=== PATIENT | male | born 1950 | race Caucasian/White ===

== ENCOUNTER 2021-11-28 12:49 | Outpatient (CLI) | payer MEDICARE, BC, SELFPAY ==
--- NOTE | 2021-11-28 13:00 | CRLHL7_ITS ---
For Patients: As a result of the Century Cures Act, medical imaging exams and procedure reports are released immediately into your electronic medical record. You may view this report before your referring provider. If you have questions, please contact your health care provider. Indication: Bronchiolitis obliterans organizing pneumonia Technique: Noncontrast CT chest Please note that all CT scans at this facility use dose modulation, iterative reconstruction, and/or weight-based dosing when appropriate to reduce radiation dose to as low as reasonably achievable. Comparison: 07/04/2021 Findings: Similar nodular density within the right mid lung measuring 1 cm, 3/45. No significant interval change and scarring with bronchiectasis within both lower lobes, lingula and right middle lobe. Similar ill-defined reticular densities within the superior segment of the left lower lobe as well as the left upper lobe and right upper lobe. No pneumothorax or pleural effusion. Cardiomegaly. Calcified gallstone in the gallbladder measuring 2.7 cm. Adrenal glands normal. Regional air trapping left upper lobe is unchanged. No fracture. Impression: No significant change since the prior study. Please note that all CT scans at this facility use dose modulation, iterative reconstruction, and/or weight-based dosing when appropriate to reduce radiation dose to as low as reasonably achievable. Dictated by Ru Aviles MD @ 11/28/2021 1:56:54 PM (Electronically Signed)
== END 2021-11-28 12:50 | disposition home or self-care (01) ==
PROVIDERS: PCP Family Medicine; Visit Provider Family Medicine
DX: J84.116 Cryptogenic organizing pneumonia (principal)
CPT/HCPCS: 71250

== ENCOUNTER 2022-02-02 13:37 | Outpatient (CLI) | payer MEDICARE, BC, SELFPAY ==
[2022-02-02 22:49] LABS: Cholesterol* 124 mg/dL (90-199); HDL Cholesterol* 35 mg/dL (>=40); LDL Cholesterol Calculated 68 mg/dL (<100); Triglycerides* 103 mg/dL (40-149)
== END 2022-02-02 13:38 | disposition home or self-care (01) ==
LOC: FBOREF 13:37
PROVIDERS: PCP Family Medicine; Visit Provider Family Medicine
DX: E78.5 Hyperlipidemia, unspecified (principal)
CPT/HCPCS: 80061